=== PATIENT | female | born 1970 | race African-American/Black ===

== ENCOUNTER 2018-11-14 15:00 | Emergency (ER) | payer MEDICAID ==
[~2018-11-14] VITALS: Ht 162.6 cm; Wt 53.5 kg
[~2018-11-14 15:00] MED LIST: CLINDAMYCIN HC300 MG ORAL; HYDROCODON-ACE1 EA15 ORAL
[2018-11-14] MEDS ORDERED: PROAIR HFA8.5 GM INH (15:14)
[2018-11-14] MEDS ORDERED: PEPCID AC10 MG PO (15:14)
[2018-11-14] MEDS ORDERED: CREON DR 36,001 EACH PO (15:14)
[2018-11-14] MEDS ORDERED: ZOFRAN4 M3 ORAL (15:14)
--- NOTE | 2018-11-14 15:27 | Emergency Room Report ---
History of Present Illness General Chief Complaint: Abdominal Pain Present Illness HPI Disclaimer: Please note that this report is being documented using [employer] technology. This can lead to erroneous entry secondary to incorrect interpretation by the dictating instrument. HPI: 48-year-old female with history of alcohol abuse, pancreatitis with pancreatic cyst status post stent placement presents for evaluation of abdominal pain, chest pain and left arm pain. Symptoms began last night after having negative drinking. She is a regular drinker but had a binge drinking episode last evening with her daughter. She notes left upper quadrant cramping and burning that radiates up the left chest and into the left shoulder. She states this is similar presentation to her prior gastritis and pancreatitis. She also reports chest pain but denies shortness of breath. Reports nausea but denies vomiting. Denies lower pelvic or abdominal cramping but does have a history of ovarian cyst. Denies dysuria, hematuria, vaginal discharge, vaginal bleeding. Denies fevers, chills, sore throat, nasal congestion. PMH: Pancreatitis, gastritis, alcohol use PSH: Pancreatic stent placement, D&C Allergies: Penicillin Social Hx: Regular alcohol use, denies drug use Allergies: Coded Allergies: PENICILLINS (Verified Allergy, Unknown, 03/27/15) Patient History Last Menstrual Period: menopause Nursing Documentation-PMH Hx Cardiac Problems: No Hx Hypertension: No Hx Pacemaker: No Hx Asthma: Yes Hx COPD: No Hx Diabetes: No Hx Cancer: No Hx Gastrointestinal Problems: Yes - PANCREAITIS, GASTRITIS Hx Dialysis: No History Of Psychiatric Problem: No Hx Neurological Problems: No Hx Cerebrovascular Accident: No Hx Seizures: No Review of Systems All Other Systems: negative except mentioned in HPI Physical Exam Vital Signs Date Time Temp Pulse Resp B/P (MAP) Pulse Ox O2 Delivery O2 Flow Rate FiO2 11/14/18 15:07 98.1 96 16 155/100 (118) 97 Room Air General: Awake and alert, appears uncomfortable HEENT: NC/AT. EOMI. moist mucous membranes Chest Wall: No tenderness, no deformity Cardiovascular: RRR. S1 and S2 normal. No murmur appreciated Resp: Normal work of breathing. No cough, wheezing or crackles appreciated Abdomen: Abdomen is soft, nondistended. Severe tenderness in the epigastrium and left upper quadrant. Moderate tenderness in the right upper quadrant. No tenderness in the lower quadrants or in the periumbilical region. No rebound. Skin: Intact. No abrasions, laceration or rash over the exposed skin MSK: Normal tone and bulk. Moving all extremities. No obvious deformity. Neuro: Awake and alert. Mentating appropriately. Medical Decision Making Diagnostic Impression: Primary Impression: Abdominal pain Additional Impression: Gastritis due to alcohol without hemorrhage ER Course 48-year-old female with a history of alcohol abuse, gastritis, pancreatitis with a pancreatic stent placement several years ago for presumable pancreatic head mass presents for evaluation of abdominal pain after heavy night of drinking. Differential includes was not limited to gastritis, pancreatitis, cholecystitis, gastroenteritis, obstruction, pancreatitis, ovarian cyst, nephrolithiasis, pyelonephritis, ACS, GERD. Will start broad metabolic, cardiac , infectious work-up. Will obtain EKG, chest x-ray, cardiac enzymes as well as a CT scan of the abdomen pelvis. Start aggressive IV hydration, pain medication , antiemetics and antacids. Laboratory Tests Test 11/14/18 15:46 11/14/18 17:14 11/14/18 19:45 White Blood Count 5.8 K/UL (4.8-10.8) Red Blood Count 3.99 M/UL (4.20-5.40) L Hemoglobin 13.0 G/DL (12.0-16.0) Hematocrit 39.6 % (37.0-47.0) Mean Corpuscular Volume 99 FL (80-99) Mean Corpuscular Hemoglobin 32.6 PG (27.0-31.0) H Mean Corpuscular Hemoglobin Concent 32.9 G/DL (32.0-36.0) Red Cell Distribution Width 14.0 % (11.6-14.8) Platelet Count 182 K/UL (150-450) Mean Platelet Volume 8.3 FL (6.5-10.1) Neutrophils (%) (Auto) 59.7 % (45.0-75.0) Lymphocytes (%) (Auto) 26.1 % (20.0-45.0) Monocytes (%) (Auto) 8.4 % (1.0-10.0) Eosinophils (%) (Auto) 4.1 % (0.0-3.0) H Basophils (%) (Auto) 1.8 % (0.0-2.0) Sodium Level 140 MMOL/L (136-145) Potassium Level 4.3 MMOL/L (3.5-5.1) Chloride Level 104 MMOL/L (98-107) Carbon Dioxide Level 27 MMOL/L (21-32) Anion Gap 10 mmol/L (5-15) Blood Urea Nitrogen 8 mg/dL (7-18) Creatinine 0.7 MG/DL (0.55-1.30) Estimate Glomerular Filtration Rate > 60 mL/min (>60) Glucose Level 105 MG/DL (74-106) Calcium Level 9.8 MG/DL (8.5-10.1) Total Bilirubin 0.6 MG/DL (0.2-1.0) Aspartate Amino Transferase (AST) 32 U/L (15-37) Alanine Aminotransferase (ALT) 22 U/L (12-78) Alkaline Phosphatase 124 U/L (46-116) H Troponin I 0.000 ng/mL (0.000-0.056) Total Protein 7.3 G/DL (6.4-8.2) Albumin 3.6 G/DL (3.4-5.0) Globulin 3.7 g/dL Albumin/Globulin Ratio 1.0 (1.0-2.7) Lipase 358 U/L (73-393) 300 U/L (73-393) Urine Color Pale yellow Urine Appearance Clear Urine pH 6 (4.5-8.0) Urine Specific [place] 1.005 (1.005-1.035) Urine Protein Negative (NEGATIVE) Urine Glucose (UA) Negative (NEGATIVE) Urine Ketones Negative (NEGATIVE) Urine Blood Negative (NEGATIVE) Urine Nitrite Negative (NEGATIVE) Urine Bilirubin Negative (NEGATIVE) Urine Urobilinogen Normal MG/DL (0.0-1.0) Urine Leukocyte Esterase 3+ (NEGATIVE) H Urine RBC 0-2 /HPF (0 - 2) Urine WBC 2-4 /HPF (0 - 2) Urine Squamous Epithelial Cells None /LPF (NONE/OCC) Urine Bacteria Few /HPF (NONE) EKG Diagnostic Results EKG Time: 15:38 Rate: normal Rhythm: NSR ST Segments: no acute changes Other Impression Sinus rhythm, normal axis, normal intervals, no ST segment changes. Rhythm Strip Diag. Results Rhythm Strip Time: 15:38 EP Interpretation: yes Rate: 80s Rhythm: NSR, no PVC's, no ectopy Chest X-Ray Diagnostic Results Chest X-Ray Diagnostic Results : Chest X-Ray Ordered: Yes # of Views/Limited/Complete: 1 View Indication: Chest Pain EP Interpretation: Yes Interpretation: no consolidation, no effusion, no pneumothorax, no acute cardiopulmonary disease Impression: No acute disease Electronically Signed by: Electronically signed by Dr. Lion Waters Reevaluation Time: 20:55 Last Vital Signs Date Time Temp Pulse Resp B/P (MAP) Pulse Ox O2 Delivery O2 Flow Rate FiO2 11/14/18 15:07 98.1 96 16 155/100 (118) 97 Room Air Reevaluation Impression Does have returned largely within normal limits. No significant elevation in lipase. Troponin is negative. Other labs including CBC and CMP are within normal limits. Patient has 3+ leukocyte esterase but no bacteria, no white cells and no symptoms of a urinary tract infection. Chest x-ray is unremarkable as is EKG. CT scan showed evidence of pancreatic pseudocyst with is consistent with the patient's history but there were no acute findings to suggest obstruction or necrotizing pancreatitis. Lipase was repeated and is downtrending. The patient's symptoms have resolved. She will be discharged home with antacids and instructed to refrain from drinking alcohol. She is also requesting a refill of her albuterol inhaler which we will provide. She will follow-up with her PMD and we discussed reasons to return to the emergency department. She understands and agrees with this treatment plan was discharged home. Disposition: HOME, SELF-CARE Condition: Improved Scripts Albuterol Sulfate* (ALBUTEROL SULFATE MDI*) 8.5 Gm Hfa.aer.ad 2 PUFF INH Q4H PRN for cough/wheezing, #1 EA 0 Refills Prov: Lion Waters MD 11/14/18 Calcium Carbonate/Simethicone (MAALOX ADVANCED TAB CHEW) 1 Each Tab.chew 1 EACH PO TID for 5 Days, #20 TAB Prov: Lion Waters MD 11/14/18 Ondansetron Odt* (ZOFRAN ODT*) 4 Mg Tab.rapdis 4 MG BC EVERY 6 HOURS PRN for Nausea & Vomiting, #10 TAB 0 Refills Prov: Lion Waters MD 11/14/18 Famotidine (FAMOTIDINE) 20 Mg Tablet 20 MG ORAL DAILY for 30 Days, #30 TAB 0 Refills Prov: Lion Waters MD 11/14/18 Lino Waters MD Nov 14, 2018 15:27
[2018-11-14] MEDS ORDERED: Mylanta II UD 30ml ORAL ONE (15:30)
[2018-11-14] MEDS ORDERED: Morphine Sulfate 4mg/ml Inj (IV USE ONLY) IVP ONE ×2 (15:30→19:15)
[2018-11-14] MEDS ORDERED: Dicyclomine HCl 10mg/5ml oral soln ORAL ONE (15:30)
[2018-11-14] MEDS ORDERED: Omnipaque-300 100ml vial INJ PRN (15:30)
[2018-11-14] MEDS ORDERED: Lidocaine 2% Visc 15ml soln ORAL ONE (15:30)
--- NOTE | 2018-11-14 15:34 | NUR ---
ED Nurse Note: PT WALKED IN TO ER TODAY FROM HOME. AOX4. PT C/O LEFT ARM AND LLQ ABDOMINAL PAIN, 8/10 X LAST NIGHT. ABDOMEN NONDISTENDED BUT TENDER TO PALPATION. ACTIVE BOWEL SOUNDS IN ALL QUADRANTS. PT DENIES VOMITING OR DIARRHEA.
[2018-11-14 15:35] VITALS: BP 165/90
[2018-11-14 16:16] LABS: ANION GAP 10 mmol/L (5-15); BLOOD UREA NITROGEN 8 mg/dL (7-18); CALCIUM 9.8 MG/DL (8.5-10.1); CARBON DIOXIDE 27 MMOL/L (21-32); CHLORIDE 104 MMOL/L (98-107); CREATININE 0.7 MG/DL (0.55-1.30); POTASSIUM 4.3 MMOL/L (3.5-5.1); SODIUM 140 MMOL/L (136-145)
[2018-11-14 16:19] LABS: ALANINE AMINOTRANSFERASE 22 U/L (12-78); ALBUMIN 3.6 G/DL (3.4-5.0); ALKALINE PHOSPHATASE 124 U/L (46-116); ASPARTATE AMINO TRANSFERASE 32 U/L (15-37); BILIRUBIN,TOTAL 0.6 MG/DL (0.2-1.0)
[2018-11-14 16:22] LABS: BASOPHILS % (AUTO) 1.8 % (0.0-2.0); EOSINOPHILS % (AUTO) 4.1 % (0.0-3.0); HEMATOCRIT 39.6 % (37.0-47.0); LYMPHOCYTES % (AUTO) 26.1 % (20.0-45.0); MEAN CORPUSCULAR VOLUME 99 FL (80-99); MONOCYTES % (AUTO) 8.4 % (1.0-10.0); NEUTROPHILS % (AUTO) 59.7 % (45.0-75.0); PLATELET COUNT 182 K/UL (150-450); RED BLOOD COUNT 3.99 M/UL (4.20-5.40); WHITE BLOOD COUNT 5.8 K/UL (4.8-10.8)
--- NOTE | 2018-11-14 16:44 | NUR ---
ED Nurse Note: PT TO CT VIA [facility].
[2018-11-14 17:51] LABS: APPEARANCE,URINE CLEAR; BILIRUBIN, URINE NEGATIVE (NEGATIVE); COLOR,URINE PALE YELLOW; GLUCOSE, URINE (UA) NEGATIVE (NEGATIVE); KETONES,URINE NEGATIVE (NEGATIVE); LEUKOCYTE ESTERASE ,URINE 3+ (NEGATIVE); NITRITE,URINE NEGATIVE (NEGATIVE); PH,URINE 6 (4.5-8.0); PROTEIN,URINE NEGATIVE (NEGATIVE); UROBILINOGEN,URINE NORMAL MG/DL (0.0-1.0)
--- NOTE | 2018-11-14 19:04 | NUR ---
HAND-OFF: REPORT GIVEN TO KIARA GRANT.
--- NOTE | 2018-11-14 19:06 | Diagnostic Imaging Report ---
Indication: Abdominal pain Technique: Continuous helical transaxial imaging of the abdomen and pelvis was obtained from the lung bases to the pubic symphysis during intravenous contrast administration. Coronal 2-D reformats were also obtained. Study obtained in a Siemens sensation [address] Automatic Exposure Control was utilized. Total Dose length Product (DLP): [address] Dose Index Volume (CTDIvol): 22.8 mGy Comparison: None Findings: Multiple, well encapsulated cystic lesions are demonstrated in the area of the splenic hilum as well as a small amount of fluid surrounding the spleen and extending into the subdiaphragmatic region of the left upper quadrant. The cysts show wall enhancement and a well-defined. These are most likely pancreatic pseudocysts given evidence of chronic pancreatitis with multiple parenchymal calcifications within the pancreas. Also within the pancreatic parenchyma itself in the body and tail there are a few small cystic lesions present also likely smaller pseudocysts. There is a mild degree of ascites mainly demonstrated within the pelvis. There is no free air. Bowel gas pattern is nonobstructive. Both kidneys enhance normally but there demonstrated during arterial phase. There is a 1 cm cyst in the left kidney noted. The liver appears slightly hypodense consistent with fatty infiltration. Spleen is normal in size. Gallbladder is grossly unremarkable. The appendix is normal. Thickening of the wall the urinary bladder noted. Uterus is present. There is evidence of an old fracture involving the superior endplate of L2 which is compressed with about 20% loss of height and mild kyphotic deformity about the fracture. Superimposed degenerative endplate osteophytes noted projecting anteriorly. IMPRESSION: Multicystic, well encapsulated lesions within the area of the left splenic hilum/pancreatic tail and left subdiaphragmatic region. These likely represent pseudocysts associated with pancreatitis. Evidence of chronic calcific pancreatitis with calcifications in the parenchyma. Mild to moderate free fluid within the pelvis. Fatty liver. Left renal cyst Normal appendix. Thickening of the urinary bladder wall. Consider chronic cystitis. Old L2 vertebral fracture The CT scanner at is accredited by the [employer] and the scans are performed using dose optimization techniques as appropriate to a performed exam including Automatic Exposure control.
[2018-11-14] MEDS ORDERED: MAALOX ADVANCE1 EACH PO (19:08)
[2018-11-14] MEDS ORDERED: ONDANSETRON ODT4 MG BC (19:08)
[2018-11-14] MEDS ORDERED: FAMOTIDINE20 MG ORAL (19:08)
--- NOTE | 2018-11-14 19:15 | NUR ---
ED Nurse Note: RECIEVED PT ON [facility] AWAKE, ALERT AND ORIENTED X 4, PT HERE FOR ABD PAIN, PT IS ASKING FOR PAIN MEDS, HAS PATENT IV LINE, FLUIDS COMPLETED, PT PLACED ON CARDIAC MONITORING, MD INFORMED OF PAIN, WILL RE-MEDICATE AND CONTINUE TO CLOSELY MONTIOR, REPEAT LABS DONE ALSO.
[2018-11-14 19:30] VITALS: BP 155/91
[2018-11-14 20:15] VITALS: BP 160/88
--- NOTE | 2018-11-14 20:35 | NUR ---
ER DISCHARGE NOTE: Patient is cleared to be discharged per ERMD, pt is aox4, on room air, with stable vital signs. pt was given dc and prescription instructions, pt was able to verbalize understanding, pt id band and iv site removed without complications. pt is able to ambulate with steady gait. pt took all belongings.
[2018-11-14] MEDS ORDERED: ALBUTEROL SULF8.5 GM INH (20:38)
[2018-11-14 20:39] VITALS: BP 155/91
--- NOTE | 2018-11-15 12:27 | Diagnostic Imaging Report ---
Indication: Dyspnea Comparison: None A single view chest radiograph was obtained. Findings: Cardiomediastinal appearance is within normal limits for age. The lungs are clear. Pulmonary vascularity is appropriate. The diaphragmatic contour is smooth and costophrenic angles are sharp. No pleural effusions are identified. The bones are unremarkable. Impression: No acute findings
--- NOTE | 2018-11-17 15:23 | Cardiology Report ---
APPROVED REPORT EKG Measurement Heart [id number] Normal sinus rhythm Normal ECG
== END 2018-11-14 20:40 | disposition home or self-care (01) ==
LOC: EMR 15:25
DX: K29.20 Alcoholic gastritis without bleeding (principal); J45.909 Unspecified asthma, uncomplicated; Z96.89 Presence of other specified functional implants; Z88.0 Allergy status to penicillin; R07.9 Chest pain, unspecified; R10.9 Unspecified abdominal pain
CPT/HCPCS: 36415; 71045; 74177; 80053; 81003; 83690; 84484; 85025; 93005; 96361; 96374; 96375; 96376; J2270; J2405; Q9967; S0028; Z7502; 99284